=== PATIENT | female | born 1955 | race Two or more races ===

== ENCOUNTER 2020-11-18 06:00 | Day surgery (SDC) | payer OTHER ==
[~2020-11-18 06:00] MED LIST: IMODIUM A-D2 MG PO; METFORMIN HCL500 MG PO; PERCOCET 5/3251 TAB PO; PROTONIX40 MG PO; SYNTHROID112 MCG PO; ULTRACET PO
== END 2020-11-18 10:25 | disposition home or self-care (01) ==
LOC: AMB-ENDOS 06:00
PROVIDERS: ATTEND Surgery
DX: D12.4 Benign neoplasm of descending colon (principal); K64.1 Second degree hemorrhoids; Z20.822 Contact with and (suspected) exposure to COVID-19